=== PATIENT | male | born 1950 | race Caucasian/White ===

== ENCOUNTER → 2017-09-13 | Outpatient (CLI) | payer MEDICARE ==
[~2017-09-13] MED LIST: ATORVASTATIN CA10 MG PO; FARXIGA PO; FLOMAX0.4 MG PO; LISINOPRIL10 MG PO; METFORMIN HCL500 MG PO
--- NOTE | 2017-09-13 13:26 | Diagnostic Imaging Report ---
PROCEDURE:X-RAY ABDOMEN - KUB COMPARISON:Abdomen one view 06/10/2017. INDICATIONS:CALCULUS OF KIDNEY FINDINGS: There is a non-obstructed bowel-gas pattern. 2.2 mm calculus projects over the inferior pole the right kidney. 3.0 mm calculus projects over the inferior pole of the left kidney. There are no calcifications projected over the expected course of the ureters or bladder. Degenerative changes of the lumbar spine. There are no acute osseous abnormalities. The lung bases are clear. CONCLUSION: Bilateral nonobstructing nephrolithiasis. Dictated by: Lior Mistry M.D. on 09/13/2017 at 13:26 Electronically approved by: Lior Mistry M.D. on 09/13/2017 at 13:26
== END ==
LOC: RAD 12:04
PROVIDERS: ATTEND Urology
DX: N20.0 Calculus of kidney (principal)
CPT/HCPCS: 74018

== ENCOUNTER → 2018-08-19 | Outpatient (CLI) | payer MEDICARE ==
--- NOTE | 2018-08-19 15:23 | Diagnostic Imaging Report ---
Exam: KUB. Clinical History: Renal stones. Comparison: 10/21/2016 FINDINGS: LINES/TUBES: None BOWEL PATTERN: No evidence for obstruction. SOFT TISSUES: Stable in number and size of left-sided nephrolithiasis measuring 5.8 mm and 3.6 mm in the inferior and interpolar regions respectively. More conspicuously noted stones in the right renal collecting system measuring 3.7 mm, 5.4 mm and 4.4 mm in the interpolar and inferior pole respectively Bilateral pelvic phleboliths are present. LUNG BASES: Lung bases are clear BONES: No acute findings. IMPRESSION: Bilateral nephrolithiasis as described above Signed by: Dr. Mario Triana M.D. on 08/19/2018 3:20 PM
== END ==
LOC: RAD 14:10
PROVIDERS: ATTEND Urology
DX: N20.0 Calculus of kidney (principal)
CPT/HCPCS: 74018

== ENCOUNTER → 2018-09-07 | Day surgery (SDC) | payer MEDICARE, OTHER ==
[2018-09-02 15:00] LABS: BASOPHILS # (AUTO) 0.1 (0.0-0.1); BASOPHILS % 0.6 % (0.0-1.0); EOSINOPHILS # (AUTO) 0.2 (0.0-0.4); EOSINOPHILS % 1.7 % (0.0-6.0); HEMATOCRIT 49.2 % (38.2-49.6); HEMOGLOBIN 16.2 g/dL (14.0-18.0); LYMPHOCYTES # (AUTO) 2.3 (1.0-3.2); LYMPHOCYTES % 21.7 % (18.0-39.1); MEAN CORPUSCULAR HEMOGLOBIN 29.4 pg (28-32); MEAN CORPUSCULAR HGB CONC 32.9 g/dL (31-35); MEAN CORPUSCULAR VOLUME 89.3 fL (81-99); MONOCYTES # (AUTO) 0.8 (0.2-0.8); MONOCYTES % 7.7 % (4.4-11.3); NEUTROPHILS # (AUTO) 7.2 (2.1-6.9); PLATELET COUNT 359 x10e3/uL (140-360); RED BLOOD COUNT 5.51 x10e6/uL (4.3-5.7); RED CELL DISTRIBUTION WIDTH 13.6 % (11.7-14.4)
--- NOTE | 2018-09-02 15:17 | Diagnostic Imaging Report ---
EXAMINATION: PA and lateral views of the chest. COMPARISON: None CLINICAL HISTORY: Preadmission protocol DISCUSSION: Lines/tubes: None. Lungs: Left lingular atelectasis. No pneumonia or pulmonary edema. Pleura: No pleural effusion or pneumothorax. Heart and mediastinum: The cardiomediastinal silhouette is normal. Bones and soft tissues: No acute bony abnormalities. IMPRESSION: No acute cardiopulmonary abnormalities. Signed by: Dr. Eric Lou M.D. on 09/02/2018 3:13 PM
[2018-09-02 15:21] LABS: ANION GAP 15.1 mmol/L (8-16); BLOOD UREA NITROGEN 13 mg/dL (7-26); BUN/CREATININE RATIO 15 (6-25); CALCIUM 9.3 mg/dL (8.4-10.2); CARBON DIOXIDE 19 mmol/L (22-29); CHLORIDE 106 mmol/L (98-107); CREATININE, SERUM 0.85 mg/dL (0.72-1.25); EST GLOMERULAR FILTRATION RATE > 60 ML/MIN (60-); GLUCOSE 111 mg/dL (74-118); POTASSIUM 4.1 mmol/L (3.5-5.1); SODIUM 136 mmol/L (136-145)
[~2018-09-07] MED LIST changes: +CEFTRIAXONE SOD 1 GM/NS 50 ML 50 ML IV ONE; +DEXAMETHASONE SOD PHOS INJ 4 MG/ML VIAL ONE; +FENTANYL CITRATE/PF 100MCG/2 ML INJ ONE; +LIDOCAINE HCL 2% LOCAL INJ 5 ML SDV VIAL INJ ONE; +MIDAZOLAM HCL 2 MG/2 ML VIAL ONE; +ONDANSETRON HCL INJ 2MG/ML 2ML 2 MG/ML VIAL ONE; +PHENYLEPHRINE HCL 1% 10 MG/ML VIAL ONE; +PROPOFOL IV EMULSION 10 MG/ML 20 ML VIAL ONE; +SEVOFLURANE INHAL SOLN 250 ML PEN BTL ONE; +TAMSULOSIN HCL0.4 MG
--- OUTSIDE RECORDS SUMMARY | 2018-09-07 05:13 | XMS REPORT | Summary of Care ---
Author Author [facility] Organization [facility] Address Unknown Phone Unavailable Encounter HQ Jasonr_rose(FIN) [id number] Date(s): 05/25/17 - 05/26/17 [facility] [address] [place] [phone] Vital Signs No data available for this section Problem List Condition Effective Dates Status Health Status Informant Obesity(Confirmed) Active Chicken Resolved pox(Confirmed) Allergies, Adverse Reactions, Alerts Substance Reaction Severity Status NKDA Active Medications tamsulosin 0.4 mg oral capsule 0.4 mg=1 cap, PO, Daily, # 90 cap, 0 Refill(s), Pharmacy: [facility] Start Date: 05/25/17 Status: Ordered Results No data available for this section Immunizations No data available for this section Procedures Procedure Date Related Diagnosis Body Site Lithotripsy Repair of umbilical hernia Surgical removal of wisdom tooth Tonsillectomy Social History Social History Type Response Substance Abuse Use: None. Employment/School Status: Employed. 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 Activity level: Desk/Office. Alcohol Current, Type Beer, Wine, Liquor. Frequency: 1-2 times per month. Smoking Status Never smoker; Exposure to Tobacco Smoke None; Cigarette Smoking Last 365 Days No; Reg Smoking Cessation Counseling No Assessment and Plan No data available for this section
--- OUTSIDE RECORDS SUMMARY | 2018-09-07 05:13 | XMS REPORT | Summary of Care ---
Author Author [facility] Organization [facility] Address Unknown Phone Unavailable Encounter HQ Encntr_alisandy(FIN) [id number] Date(s): 11/19/17 - 11/20/17 [facility] [address] [place], [place] [address] [phone] Vital Signs No data available for this section Problem List Condition Effective Dates Status Health Status Informant Diabetes(Confirmed) Active Mixed Active hyperlipidemia(Confi rmed) Obesity(Confirmed) Active Type 2 diabetes Resolved mellitus without complications(Confir med) Chicken Resolved pox(Confirmed) Allergies, Adverse Reactions, Alerts Substance Reaction Severity Status NKDA Active Medications No data available for this section Results No data available for this section Immunizations Given and Recorded Vaccine Date Status Refusal Reason zoster vaccine live 11/19/17 Recorded zoster vaccine live 09/02/17 Recorded pneumococcal 13-valent vaccine 09/02/17 Recorded Procedures Procedure Date Related Diagnosis Body Site Status Diabetic retinal eye exam 08/27/17 Completed Lithotripsy Completed Repair of umbilical hernia Completed Surgical removal of wisdom tooth Completed Tonsillectomy Completed Social History Social History Type Response Substance Abuse Use: None. Employment/School Status: Employed. 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 Alcohol Current, Type Beer, Wine, Liquor. Frequency: 1-2 times per month. Smoking Status Never smoker; Exposure to Tobacco Smoke None; Cigarette Smoking Last 365 Days No; Reg Smoking Cessation Counseling No entered on: 09/02/17 Assessment and Plan No data available for this section
--- OUTSIDE RECORDS SUMMARY | 2018-09-07 05:13 | XMS REPORT | Continuity of Care Document ---
Author Author [facility] Interface Address Unknown Phone Unavailable Problems Problem Status Onset Date Classification Date Reported Comments Source Obesity Active Problem 01/11/2018 [facility] Chicken pox Resolved Problem 01/11/2018 [facility] Diabetes Active Problem 01/11/2018 [facility] Mixed hyperlipidemia Active Problem 01/11/2018 [facility] Type 2 diabetes mellitus without complications Resolved Problem 01/11/2018 [facility] Medications Medication Details Route Status Patient Instructions Ordering Provider Order Date Source Metformin hydrochloride 500 MG Oral Tablet See Instructions, # 180 tab, Refill(s) 1, TAKE ONE TABLET BY MOUTH TWICE DAILY WITH MEALS, Pharmacy: [facility] Active 11/01/2017 [facility] atorvastatin 10 mg oral tablet See Instructions, # 90 tab, Refill(s) 1, TAKE ONE TABLET BY MOUTH AT BEDTIME, Pharmacy: [facility] Active 10/08/2017 [facility] lisinopril 10 mg oral tablet See Instructions, # 90 tab, Refill(s) 1, TAKE ONE TABLET BY MOUTH ONCE DAILY, Pharmacy: [facility] Active 10/04/2017 [facility] acyclovir 800 mg oral tablet 800 mg=1 tab, PO, Daily, PRN outbreak, # 50 tab, 1 Refill(s), Pharmacy: [facility] Active 09/02/2017 [facility] tamsulosin 0.4 mg oral capsule See Instructions, # 90 unknown unit, Refill(s) 1, TAKE ONE CAPSULE BY MOUTH ONCE DAILY, Pharmacy: [facility] Active 08/25/2017 [facility] Codeine Phosphate 2 MG/ML / Guaifenesin 20 MG/ML Oral Solution [Cheratussin] 5 mL, PO, Q6H, PRN cough, X 6 day, # 240 mL, 0 Refill(s) No Longer Active 08/09/2017 [facility] finasteride 5 mg oral tablet 5 mg=1 tab, PO, Daily, # 30 tab, 0 Refill(s) Active 08/09/2017 [facility] tamsulosin 0.4 mg oral capsule 0.4 mg=1 cap, PO, Daily, # 90 cap, 0 Refill(s), Pharmacy: [facility] Active 05/25/2017 [facility] Allergies, Adverse Reactions, Alerts Substance Category Reaction Severity Reaction type Status Date Reported Comments Source Immunizations Immunization Date Given Site Status Last Updated Comments Source zoster vaccine live 11/19/2017 completed [facility] pneumococcal 13-valent vaccine 09/02/2017 completed M[facility] zoster vaccine live 09/02/2017 completed [facility] Results Order Name Results Value Reference Range Date Interpretation Comments Source Vital Signs Vital Sign Value Date Comments Source Height 180.34 cm 09/02/2017 [facility] BMI Calculated 36.98 09/02/2017 [facility] Weight 120.273 09/02/2017 [facility] Systolic (mm Hg) 117 09/02/2017 [facility] Diastolic (mm Hg) 79 09/02/2017 [facility] Temperature Oral (F) 97.5 F 09/02/2017 [facility] Heart Rate 105 09/02/2017 [facility] Heart Rate 126 08/09/2017 [facility] Temperature Oral (F) 98.0 F 08/09/2017 [facility] Systolic (mm Hg) 103 08/09/2017 [facility] Diastolic (mm Hg) 76 08/09/2017 [facility] Encounters Location Location Details Encounter Type Encounter Number Reason For Visit Attending Provider ADM Date DC Date Status Source Outpatient [id number] DENIS NEW 07/24/2016 Active [facility] Outpatient [id number] MARIA G CISNEROS 09/07/2016 Active [facility] Outpatient [id number] DENIS NEW 10/06/2016 Active [facility] Outpatient [id number] DENIS NEW 04/01/2017 [facility] Phone Message [id number] 05/25/2017 05/27/2017 [facility] Outpatient [id number] DENIS NEW 08/09/2017 [facility] Outpatient [id number] Denis New 08/09/2017 08/10/2017 [facility] Phone Message [id number] 08/25/2017 08/27/2017 [facility] Outpatient [id number] DENIS NEW 09/02/2017 Active [facility] Outpatient [id number] Denis New 09/02/2017 09/03/2017 [facility] Outside Medical Records [id number] 09/07/2017 09/09/2017 [facility] Phone Message [id number] 10/04/2017 10/06/2017 [facility] Phone Message [id number] 10/08/2017 10/10/2017 [facility] Outside Medical Records [id number] 10/22/2017 10/24/2017 [facility] Phone Message [id number] 11/01/2017 11/03/2017 [facility] Outside Medical Records [id number] 11/19/2017 11/21/2017 [facility] Outpatient [id number] DENIS NEW 05/11/2018 [facility] Outpatient [id number] LAZ VALENCIA 06/13/2018 [facility] Procedures Procedure Code Date Perfomer Comments Source Diabetic retinal eye exam [id number] 08/27/2017 [facility] Lithotripsy [id number] [facility] Repair of umbilical hernia [id number] [facility] Surgical removal of wisdom tooth [id number] [facility] Tonsillectomy [id number] [facility]
--- OUTSIDE RECORDS SUMMARY | 2018-09-07 05:14 | XMS REPORT | Summary of Care ---
Author Author [facility] Primary [facility] Organization [facility] Address Unknown Phone Unavailable Encounter HQ Encntr_alias(FIN) [id number] Date(s): 10/22/17 - 10/23/17 [facility] [address] [place], [place] [address] [phone] Vital Signs No data available for this [...] and Recorded Vaccine Date Status Refusal Reason pneumococcal 13-valent vaccine 09/02/17 Recorded zoster vaccine live 09/02/17 Recorded Procedures Procedure Date Related Diagnosis Body Site Status Diabetic retinal eye exam 08/27/17 Completed Lithotripsy Completed Repair of umbilical hernia Completed Surgical removal of wisdom tooth Completed Tonsillectomy Completed Social History Social History Type Response Substance Abuse Use: None. Employment/School Status: Employed. 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 Activity level: Desk/Office. Alcohol Current, Type Beer, Wine, Liquor. Frequency: 1-2 times per month. Smoking Status Never smoker; Exposure to Tobacco Smoke None; Cigarette Smoking Last 365 Days No; Reg Smoking Cessation Counseling No entered on: 09/02/17 Assessment and Plan No data available for this section
--- OUTSIDE RECORDS SUMMARY | 2018-09-07 05:14 | XMS REPORT | Summary of Care ---
Author Author [facility] Primary [facility] Organization [facility] Address Unknown Phone Unavailable Encounter HQ Encntr_alias(FIN) [id number] Date(s): 10/22/17 - 10/23/17 [facility] [address] [place], [place] [address] [phone] Vital Signs No data available for this [...] Use: None. Employment/School Status: Employed. 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 Alcohol Current, Type Beer, Wine, Liquor. Frequency: 1-2 times per month. Smoking Status Never smoker; Exposure to Tobacco Smoke None; Cigarette Smoking Last 365 Days No; Reg Smoking Cessation Counseling No entered on: 09/02/17 Assessment and Plan No data available for this section
--- OUTSIDE RECORDS SUMMARY | 2018-09-07 05:14 | XMS REPORT | Summary of Care ---
Author Author [facility] Primary [facility] Organization [facility] Address Unknown Phone Unavailable Encounter HQ Jasonr_rose(FIN) [id number] Date(s): 10/04/17 - 10/05/17 [facility] [address] [place], [place] [address] [phone] Vital Signs No data available for this section Problem List Condition Effective Dates Status Health Status Informant Diabetes(Confirmed) Active Mixed Active hyperlipidemia(Confi rmed) Obesity(Confirmed) Active Type 2 diabetes Resolved mellitus without complications(Confir med) Chicken Resolved pox(Confirmed) Allergies, Adverse Reactions, Alerts Substance Reaction Severity Status NKDA Active Medications lisinopril 10 mg oral tablet See Instructions, # 90 tab, Refill(s) 1, TAKE ONE TABLET BY MOUTH ONCE DAILY, Ph armacy: [facility] Start Date: 10/04/17 Status: Ordered Results No data available for [...] Use: None. Employment/School Status: Employed. 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 Activity level: Desk/Office. Alcohol Current, Type Beer, Wine, Liquor. Frequency: 1-2 times per month. Smoking Status Never smoker; Exposure to Tobacco Smoke None; Cigarette Smoking Last 365 Days No; Reg Smoking Cessation Counseling No entered on: 09/02/17 Assessment and Plan No data available for this section
--- OUTSIDE RECORDS SUMMARY | 2018-09-07 05:14 | XMS REPORT | Summary of Care ---
Author Author [facility] Primary [facility] Organization [facility] Address Unknown Phone Unavailable Encounter HQ Jasonr_rose(FIN) [id number] Date(s): 11/01/17 - 11/02/17 [facility] [address] [place], [place] [address] [phone] Vital Signs No data available for this section Problem List Condition Effective Dates Status Health Status Informant Diabetes(Confirmed) Active Mixed Active hyperlipidemia(Confi rmed) Obesity(Confirmed) Active Type 2 diabetes Resolved mellitus without complications(Confir med) Chicken Resolved pox(Confirmed) Allergies, Adverse Reactions, Alerts Substance Reaction Severity Status NKDA Active Medications metFORMIN 500 mg oral tablet See Instructions, # 180 tab, Refill(s) 1, TAKE ONE TABLET BY MOUTH TWICE DAILY W ITH MEALS, Pharmacy: [facility] Start Date: 11/01/17 Status: Ordered Results No data available for [...] Use: None. Employment/School Status: Employed. 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 Alcohol Current, Type Beer, Wine, Liquor. Frequency: 1-2 times per month. Smoking Status Never smoker; Exposure to Tobacco Smoke None; Cigarette Smoking Last 365 Days No; Reg Smoking Cessation Counseling No entered on: 09/02/17 Assessment and Plan No data available for this section
--- OUTSIDE RECORDS SUMMARY | 2018-09-07 05:14 | XMS REPORT | Summary of Care ---
Author Author [facility] Primary [facility] Organization [facility] Address Unknown Phone Unavailable Encounter HQ Juan José_rose(FIN) [id number] Date(s): 08/09/17 - 08/09/17 [facility] [address] [place], [place] [address] [phone] Discharge Disposition: Home or Self Care Attending Physician: Denis Herrera MD Vital Signs Most recent to 1 oldest [Reference Range]: Temperature Oral 98.0 DegF [96.4-99.1 DegF] (08/09/17 3:03 PM) Blood Pressure 103/76 mmHg [90-140/60-90 mmHg] (08/09/17 3:03 PM) Peripheral Pulse 126 bpm Rate [60-100 bpm] *HI* (08/09/17 3:03 PM) Problem List Condition Effective Dates Status Health Status Informant Diabetes(Confirmed) Active Mixed Active hyperlipidemia(Confi rmed) Obesity(Confirmed) Active Type 2 diabetes Resolved mellitus without complications(Confir med) Chicken Resolved pox(Confirmed) Allergies, Adverse Reactions, Alerts Substance Reaction Severity Status NKDA Active Medications Cheratussin AC oral syrup 5 mL, PO, Q6H, PRN cough, X 6 day, # 240 mL, 0 Refill(s) Start Date: 08/09/17 Stop Date: 08/15/17 Status: Completed finasteride 5 mg oral tablet 5 mg=1 tab, PO, Daily, # 30 tab, 0 Refill(s) Start Date: 08/09/17 Status: Ordered Results No data available for [...] Use: None. Employment/School Status: Employed. 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 Alcohol Current, Type Beer, Wine, Liquor. Frequency: 1-2 times per month. Smoking Status Never smoker; Exposure to Tobacco Smoke None; Cigarette Smoking Last 365 Days No; Reg Smoking Cessation Counseling No entered on: 09/02/17 Assessment and Plan No data available for this section
--- OUTSIDE RECORDS SUMMARY | 2018-09-07 05:14 | XMS REPORT | Summary of Care ---
Author Author [facility] Primary [facility] Organization [facility] Address Unknown Phone Unavailable Encounter HQ Arturo(FIN) [id number] Date(s): 09/02/17 - 09/02/17 [facility] [address] [place] [address] [phone] Discharge Disposition: Home or Self Care Attending Physician: Denis Herrera MD Vital Signs Most recent to 1 oldest [Reference Range]: Height 180.34 cm (09/02/17 9:03 AM) Temperature Oral 97.5 DegF [96.4-99.1 DegF] (09/02/17 9:03 AM) Blood Pressure 117/79 mmHg [90-140/60-90 mmHg] (09/02/17 9:03 AM) Peripheral Pulse 105 bpm Rate [60-100 bpm] *HI* (09/02/17 9:03 AM) Weight 120.273 kg (09/02/17 9:03 AM) Body Mass Index 36.98 m2 (09/02/17 9:03 AM) Problem List Condition Effective Dates Status Health Status Informant Diabetes(Confirmed) Active Mixed Active hyperlipidemia(Confi rmed) Obesity(Confirmed) Active Type 2 diabetes Resolved mellitus without complications(Confir med) Chicken Resolved pox(Confirmed) Allergies, Adverse Reactions, Alerts Substance Reaction Severity Status NKDA Active Medications acyclovir 800 mg oral tablet 800 mg=1 tab, PO, Daily, PRN outbreak, # 50 tab, 1 Refill(s), Pharmacy: [facility] Start Date: 09/02/17 Stop Date: 09/02/18 Status: Ordered Results No data available for [...] Use: None. Employment/School Status: Employed. 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 Alcohol Current, Type Beer, Wine, Liquor. Frequency: 1-2 times per month. Smoking Status Never smoker; Exposure to Tobacco Smoke None; Cigarette Smoking Last 365 Days No; Reg Smoking Cessation Counseling No entered on: 09/02/17 Assessment and Plan No data available for this section
--- OUTSIDE RECORDS SUMMARY | 2018-09-07 05:14 | XMS REPORT ---
Author Author [facility] Address Unknown Phone Unavailable Care Team Providers Care Business Affairs Manager Name Role Phone NETTA LING Unavailable Unavailable Problems This patient has no known problems. Allergies, Adverse Reactions, Alerts This patient has no known allergies or adverse reactions. Medications This patient has no known medications. Results Test Description Test Time Test Comments Text Results Atomic Results Result Comments CHEST 2 VIEWS 2018-09-02 15:13:00 [place] [address] Patient Name: ERIKA SIMPSON MR #: [id number] : 1950 Age/Sex: 68/M Req #: [id number] [facility] Physician: Ordered by: NETTA LING MD Report #: [id number] Location: OR Room/Bed: Procedure: [id number] DX/CHEST 2 VIEWS Exam Date: 09/02/18 Exam Time: 1450 REPORT STATUS: Signed EXAMINATION: PA and lateral views of the chest. DAMIAN RISON: None CLINICAL HISTORY: Preadmission protocol DISCUSSION: Lines/tubes: None. Lungs: Left lingular atelectasis. No pneumonia or pulmonary edema. Pleura: No pleural effusion or pneumothorax. Heart and mediastinum: The cardiomediastinal silhouette is normal. Bones and soft tissues: No acute bony abnormalities. IMPRESSION: No acute cardiopulmonary abnormalities. Signed by: Dr. Taylor Barton M.D. on 09/02/2018 3:13 PM Dictated By: TAYLOR BARTON MD 151 Transcribed By: QUINTON on 09/02/181512 COPY TO: NETTA LING MD ABDOMEN-1VIEW (KUB) 2018-08-19 15:16:00 [place] [address] Patient Name: ERIKA SIMPSON MR #: [id number] : 1950 Age/Sex: 68/M Req #: [id number] Adm Physician: Ordered by: NETTA LING MD Report #: [id number] Location: [facility] Room/Bed: Procedure: [id number] DX/ABDOMEN-1VIEW (KUB) Exam Date: 08/19/18 Exam Time: 1430 REPORT STATUS: Signed Exam: KUB. Clinical History: Renal stones. Comparison: 10/21/2016 FINDINGS: LINES/TUBES: None BOWEL PATTERN: No evidence for obstruction. SOFT TISSUES: Stable in number and size of left- sided nephrolithiasis measuring 5.8 mm and 3.6 mm in the inferior and interpolar regions respectively. More conspicuously noted stones in the right renal collecting system measuring 3.7 mm, 5.4 mm and 4.4 mm in the interpolar and inferior pole respectively Bilateral pelvic phleboliths are present. LUNG BASES: Lung bases are clear BONES: No acute findings. IMPRESSION: Bilateral nephrolithiasis as described above Signed by: Dr. Mario Triana M.D. on 08/19/2018 3:20 PM Dictated By: MARIO TRIANA MD, MD 1520 Transcribed By: QUINTON on 08/19/18 1520 COPY TO: NETTA LING MD ABDOMEN-1VIEW (KUB) [place] [address] Patient Name: ERIKA SIMPSON MR #: [id number] : 1950 Age/Sex: 67/M Req #: [id number] Adm Physician: Ordered by: NETTA LING MD Report #: [id number] Location: [facility] Room/Bed: Procedure: [id number] DX/ABDOMEN-1VIEW (KUB) Exam Date: 09/13/17 Exam Time: 1255 REPORT STATUS: Signed PROCEDURE: X-RAY ABDOMEN - KUB COMPARISON: Abdomen one view 06/10/2017. INDICATIONS: CALCULUS OF KIDNEY FINDINGS: There is a non-obstructed bowel-gas pattern. 2.2 mm calculus projects over the inferior pole the right kidney. 3.0 mm calculus projects over the inferior pole of the left kidney. There are no calcifications projected over the expected course of the ureters or bladder. Degenerative changes of the lumbar spine. There are no acute osseous abnormalities. The lung bases are clear. CONCLUSION: Bilateral nonobstructing nephrolithiasis. Dictated by: Brian Packer M.D. on 09/13/2017 at 13:26 Electronically approved by: Brian Packer M.D. on 09/13/2017 at 13:26 Dictated By: BRIAN PACKER MD 1326 Transcribed By: JOVITA on 09/13/17 1326 COPY TO: NETTA LING MD ABDOMEN-1VIEW (KUB) [address] [place] [address] Patient Name: ERIKA SIMPSON MR #: [id number] : 1950 Age/Sex: 67/M Req #: [id number] Adm Physician: Ordered by: NETTA LING MD Report #: [id number] Location: [facility] Room/Bed: Procedure: [id number] DX/ABDOMEN-1VIEW (KUB) Exam Date: 06/10/17 Exam Time: 1300 REPORT STATUS: Signed PROCEDURE: X-RAY ABDOMEN - KUB COMPARISON: KUB 03/09/2017, abdominal CT 09/16/2016 INDICATIONS: CALCULUS OF KIDNEY FINDINGS: Small calculi are again noted to project over the renal silhouettes. Some of the st ones on the prior CT from 09/16/2016 are not radiographically apparent. Stable phleboliths project over the pelvis. There is a non-obstructed bowel-gas pattern. There are no acute osseous abnormalities. CONCLUSION: Bilateral nephrolithiasis. Dictated by: Krystian Serrato M.D. on 06/10/2017 at 13:29 Electronically approved by: Krystian Serrato M.D. on 06/10/2017 at 13:29 Dictated By: KRYSTIAN SERRATO MD 132 Transcribed By: JOVITA on 06/10/17 132 COPY TO: NETTA LING MD ABDOMEN-1VIEW (KUB) [place] [id number] [place] [address] Patient Name: ERIKA SIMPSON MR #: [id number] : 1950 Age/Sex: 67/M Req #: [id number] Adm Physician: Ordered by: NETTA LING MD Report #: [id number] Location: [facility] Room/Bed: Procedure: DX/ABDOMEN-1VIEW (KUB) Exam Date: 03/09/17 Exam Time: 1415 REPORT STATUS: Signed PROCEDURE: X-RAY ABDOMEN - KUB COMPARISON: [facility], DX, ABDOMEN-1VIEW (KUB), 12/02/2016, 10:58. INDICATIONS: KIDNEY STONES FINDINGS: There is a non-obstructed bowel-gas pattern. Small calculi again projected on the lower pole renal shadow bilaterally. The additional previously described calculi are not identified on today's exam due to overlying bowel contents. Phleboliths project over the pelvis, unchanged. Degenerative changes of the lower lumbar spine. DJD of hip joint bilaterally. CONCLUSION: Bilateral lower pole punctate renal calculi. Rosalina Edwards M.D. Dictated by: Rosalina Edwards M.D. on 03/09/2017 at 15:09 Electronically approved by: Rosalina Edwards M.D. on 03/09/2017 at 15:09 Dictated By: TANIYA EDWARDS MD, MD 1509 Transcribed By: JOVITA on 03/09/17 1509 COPY TO: NETTA LING MD
--- OUTSIDE RECORDS SUMMARY | 2018-09-07 05:14 | XMS REPORT | Summary of Care ---
Author Author [facility] Organization [facility] Address Unknown Phone Unavailable Encounter HQ Christantr_alisandy(FIN) [phone] Date(s): 10/08/17 - 10/09/17 [facility] [address] [place], [place] [address] [phone] Vital Signs No data available for this section Problem List Condition Effective Dates Status Health Status Informant Diabetes(Confirmed) Active Mixed Active hyperlipidemia(Confi rmed) Obesity(Confirmed) Active Type 2 diabetes Resolved mellitus without complications(Confir med) Chicken Resolved pox(Confirmed) Allergies, Adverse Reactions, Alerts Substance Reaction Severity Status NKDA Active Medications atorvastatin 10 mg oral tablet See Instructions, # 90 tab, Refill(s) 1, TAKE ONE TABLET BY MOUTH AT BEDTIME, Ph armacy: [facility] Start Date: 10/08/17 Status: Ordered Results No data available for [...] Use: None. Employment/School Status: Employed. 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 Alcohol Current, Type Beer, Wine, Liquor. Frequency: 1-2 times per month. Smoking Status Never smoker; Exposure to Tobacco Smoke None; Cigarette Smoking Last 365 Days No; Reg Smoking Cessation Counseling No entered on: 09/02/17 Assessment and Plan No data available for this section
--- OUTSIDE RECORDS SUMMARY | 2018-09-07 05:14 | XMS REPORT | Summary of Care ---
Author Author [facility] Organization [facility] Address Unknown Phone Unavailable Encounter HQ Jasonr_rose(FIN) [phone] Date(s): 10/04/17 - 10/05/17 [facility] [address] [place], [place] [address] [phone] Vital Signs [...] TABLET BY MOUTH ONCE DAILY, Ph armacy: [facility] 462 Start Date: 10/04/17 Status: Ordered [...] Use: None. Employment/School Status: Employed. 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 Alcohol Current, Type Beer, Wine, Liquor. Frequency: 1-2 times per month. Smoking Status Never smoker; Exposure to Tobacco Smoke None; Cigarette Smoking Last 365 Days No; Reg Smoking Cessation Counseling No entered on: 09/02/17 Assessment and Plan No data available for this section
--- OUTSIDE RECORDS SUMMARY | 2018-09-07 05:14 | XMS REPORT | Summary of Care ---
Author Author [facility] Organization [facility] Address Unknown Phone Unavailable Encounter HQ Encntr_alias(FIN) [phone] Date(s): 09/07/17 - 09/08/17 [facility] [address] [place], [place] [address] [phone] Vital Signs No [...] Use: None. Employment/School Status: Employed. 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 Activity level: Desk/Office. Alcohol Current, Type Beer, Wine, Liquor. Frequency: 1-2 times per month. Smoking Status Never smoker; Exposure to Tobacco Smoke None; Cigarette Smoking Last 365 Days No; Reg Smoking Cessation Counseling No entered on: 09/02/17 Assessment and Plan No data available for this section
--- OUTSIDE RECORDS SUMMARY | 2018-09-07 05:14 | XMS REPORT | Summary of Care ---
Author Author [facility] Organization [facility] Address Unknown Phone Unavailable Encounter HQ Jasonr_rose(FIN) [id number] Date(s): 08/25/17 - 08/26/17 [facility] [address] [place], [place] [address] [phone] Vital Signs No data available for this section Problem List Condition Effective Dates Status Health Status Informant Diabetes(Confirmed) Active Mixed Active hyperlipidemia(Confi rmed) Obesity(Confirmed) Active Type 2 diabetes Resolved mellitus without complications(Confir med) Chicken Resolved pox(Confirmed) Allergies, Adverse Reactions, Alerts Substance Reaction Severity Status NKDA Active Medications tamsulosin 0.4 mg oral capsule See Instructions, # 90 unknown unit, Refill(s) 1, TAKE ONE CAPSULE BY MOUTH ONCE DAILY, Pharmacy: [facility] 462 Start Date: 08/25/17 Status: Ordered Results No data available for [...] Use: None. Employment/School Status: Employed. 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 Alcohol Current, Type Beer, Wine, Liquor. Frequency: 1-2 times per month. Smoking Status Never smoker; Exposure to Tobacco Smoke None; Cigarette Smoking Last 365 Days No; Reg Smoking Cessation Counseling No entered on: 09/02/17 Assessment and Plan No data available for this section
[2018-09-07 08:00] VITALS: BP 106/79
--- NOTE | 2018-09-07 12:40 | Operative Report ---
DATE OF PROCEDURE: 09/07/2018 SURGEON: Donald Cruz MD PREOPERATIVE DIAGNOSIS: Left kidney stone. POSTOPERATIVE DIAGNOSIS: Left kidney stone. PROCEDURES: 1. Staged shock wave lithotripsy, left side. 2. Supervision of fluoroscopy. ANESTHESIA: General. ESTIMATED BLOOD LOSS: Minimal. COMPLICATIONS: None. INDICATIONS: Mr. Gonzalez is a very pleasant 68-year-old male with a history of symptomatic left-sided kidney stone. He and I had a long discussion about alternatives, the risks and the benefits of doing nothing, shock wave lithotripsy, ureteroscopy, percutaneous surgery and open surgery. He voiced understanding of the options, the alternatives, the risks, and benefits and he elected proceed. PROCEDURE: After informed consent was obtained, the patient was taken to the operative suite, placed supine on the operating table, underwent general anesthesia by the Anesthesia Service. Stone was localized in the X, Y, and Z planes. A total of 3000 shocks were delivered to the stone. The patient tolerated the procedure well and was transported to the recovery room in excellent condition. Supervision of fluoroscopy: I was present for the entire procedure and I supervised the use of fluoroscopy as no radiologist was present. MD LENY Murphy/MODL /[id number] MTDD
== END | disposition home or self-care (01) ==
LOC: OR 05:10
PROVIDERS: ATTEND Urology
DX: N20.0 Calculus of kidney (principal); N40.1 Benign prostatic hyperplasia with lower urinary tract symptoms; N13.8 Other obstructive and reflux uropathy; R35.1 Nocturia; E29.1 Testicular hypofunction; N52.9 Male erectile dysfunction, unspecified; I10 Essential (primary) hypertension; E11.9 Type 2 diabetes mellitus without complications; F41.9 Anxiety disorder, unspecified; Z01.810 Encounter for preprocedural cardiovascular examination; Z01.812 Encounter for preprocedural laboratory examination; Z01.818 Encounter for other preprocedural examination; Z79.84 Long term (current) use of oral hypoglycemic drugs; Z68.35 Body mass index [BMI] 35.0-35.9, adult
CPT/HCPCS: 36415 ×2; 50590; 71046; 80048; 82948; 85025; 93005; J0696; J1100; J2001; J2250; J2370; J2405; J2704

== ENCOUNTER → 2018-10-07 | Day surgery (SDC) | payer MEDICARE, OTHER ==
--- NOTE | 2018-10-05 13:16 | Diagnostic Imaging Report ---
Exam: Abdominal film Clinical History: Preoperative study for urological procedure Comparison: 08/19/2018 DISCUSSION: 3-4 mm calculus projecting over the lower pole of the right kidney is unchanged. Remaining bilateral renal calculi described on the comparison examination are less conspicuous on the current study. Multiple pelvic calcifications compatible with phleboliths. Bowel gas pattern is nonobstructive. Regional skeletal structures are intact. IMPRESSION: Unchanged right lower pole renal calculus. Remaining bilateral renal calculi described on the comparison examination are less conspicuous on the current study. Signed by: Dr. Isaías Hardin M.D. on 10/05/2018 1:13 PM
[~2018-10-07] MED LIST changes: -PHENYLEPHRINE HCL 1% 10 MG/ML VIAL ONE; +PROPRANOLOL HCL 1 MG/ML VIAL ONE; +VASOPRESSIN INJ 20 UNIT/ML VIAL ONE
[2018-10-07 09:45] VITALS: BP 111/69
--- NOTE | 2018-10-07 15:07 | Operative Report ---
DATE OF PROCEDURE: 10/07/2018 SURGEON: Donald Cruz MD PREOPERATIVE DIAGNOSIS: Right kidney stone. POSTOPERATIVE DIAGNOSIS: Right kidney stone. PROCEDURES: 1. Staged right-sided shockwave lithotripsy. 2. Supervision of fluoroscopy. ANESTHESIA: General. ESTIMATED BLOOD LOSS: Minimal. COMPLICATIONS: None. INDICATIONS FOR PROCEDURE: Mr. Gonzalez is a very pleasant 68-year-old male with a history of symptomatic right-sided kidney stone. He and I had a long discussion regarding alternatives, risks, and benefits including doing nothing, shock wave lithotripsy, ureteroscopy, percutaneous surgery or open surgery. He voiced understanding of the options, the alternatives, the risks, and the benefits and he elected to proceed. PROCEDURE IN DETAIL: After informed consent was obtained, the patient was taken to the operating suite. He was placed supine on the operating table. He underwent general anesthesia by the anesthesia service. The stone was localized in the X, Y, and Z planes. Treatment was performed per the treatment report. He tolerated the procedure well, was transported to recovery room with good results. Supervision of fluoroscopy: I was present for the entire procedure and I supervised fluoroscopy. There was no radiologist present. Dosage per treatment report. Donald Cruz MD ES/MODL /[id number]
== END | disposition home or self-care (01) ==
LOC: OR 06:40
PROVIDERS: ATTEND Urology
DX: N20.0 Calculus of kidney (principal); N40.1 Benign prostatic hyperplasia with lower urinary tract symptoms; R35.1 Nocturia; N13.8 Other obstructive and reflux uropathy; N52.9 Male erectile dysfunction, unspecified; E29.1 Testicular hypofunction; I10 Essential (primary) hypertension; E78.5 Hyperlipidemia, unspecified; E11.9 Type 2 diabetes mellitus without complications; Z79.84 Long term (current) use of oral hypoglycemic drugs; Z68.35 Body mass index [BMI] 35.0-35.9, adult; Z80.42 Family history of malignant neoplasm of prostate
CPT/HCPCS: 36415; 50590; 74018; 82948; J0696; J1100; J1800; J2001; J2250; J2405; J2704

== ENCOUNTER → 2018-11-03 | Outpatient (CLI) | payer MEDICARE ==
[~2018-11-03] MED LIST changes: -CEFTRIAXONE SOD 1 GM/NS 50 ML 50 ML IV ONE; -DEXAMETHASONE SOD PHOS INJ 4 MG/ML VIAL ONE; -FENTANYL CITRATE/PF 100MCG/2 ML INJ ONE; -LIDOCAINE HCL 2% LOCAL INJ 5 ML SDV VIAL INJ ONE; -MIDAZOLAM HCL 2 MG/2 ML VIAL ONE; -ONDANSETRON HCL INJ 2MG/ML 2ML 2 MG/ML VIAL ONE; -PROPOFOL IV EMULSION 10 MG/ML 20 ML VIAL ONE; -PROPRANOLOL HCL 1 MG/ML VIAL ONE; -SEVOFLURANE INHAL SOLN 250 ML PEN BTL ONE; -VASOPRESSIN INJ 20 UNIT/ML VIAL ONE
--- NOTE | 2018-11-03 13:22 | Diagnostic Imaging Report ---
Exam: KUB-2 views Clinical History: Renal calculus. Comparison: KUB 10/05/2018. DISCUSSION: Bowel gas partially obscures visualization of the kidneys. Previously noted 3 mm right lower pole renal calculus is not well-visualized. There is a 3 mm left lower pole renal calcification. No evidence of calcification overlying the expected course of the ureters. Bilateral calcified phleboliths. Nonobstructive bowel gas pattern. No acute osseous abnormality. IMPRESSION: A 3 mm left lower pole renal calculus. Additional 3 mm right lower pole calculus is not well-visualized. Signed by: Dr. Ramiro Purcell MD on 11/03/2018 1:19 PM
== END ==
LOC: RAD 11:11
PROVIDERS: ATTEND Urology
DX: N20.0 Calculus of kidney (principal)
CPT/HCPCS: 74018